=== PATIENT | male | born 1990 | race Caucasian/White ===

== ENCOUNTER 2018-06-05 01:51 | Emergency (ER) | payer BC ==
[2018-06-05 02:02] VITALS: BP 130/73; PULSE 66; RESP 18; TEMP 98
--- NOTE | 2018-06-05 02:32 | ED ---
General Adult HPI - General Chief complaint: Chest Pain Stated complaint: L arm pain Source: patient Mode of arrival: ambulatory Limitations: no limitations - History of Present Illness Initial comments: Dictation was produced using [employer] dictation software. please excuse any grammatical, word or spelling errors. Chief Complaint: 28-year-old male with no significant past mental history presented with brief episode of chest pain with paresthesias to the left hand. History of Present Illness: Works at [employer]. Today he just said several months of caffeine prior to working today. He does work overnights. Patient states that while he was at work he experienced a 2 second episode of severe sharp chest pain. That resolved on its own. Really after he started to feel some tingling in his left hand. Patient was concerned that something was wrong he called his and his brought him to the emergency department for evaluation. Patient complains of some tingling to his left hand over not numbness. She has no seen. Medical history. No family history of cardiac disease or sudden before the age of 45. The ROS documented in this emergency department record has been reviewed and confirmed by me. Those systems with pertinent positive or negative responses have been documented in the HPI. All other systems are other negative and/or noncontributory. - Related Data Allergies Allergy/AdvReac Type Severity Reaction Status Date / Time No Known Allergies Allergy Verified 06/05/18 02:02 Review of Systems ROS Statement: Those systems with pertinent positive or pertinent negative responses have been documented in the HPI. ROS Other: All systems not noted in ROS Statement are negative. Past Medical History Past Medical History: No Reported History History of Any Multi-Drug Resistant Organisms: None Reported Past Surgical History: Tonsillectomy Past Psychological History: No Psychological Hx Reported Smoking Status: Never smoker Past Alcohol Use History: Rare Past Drug Use History: None Reported General Exam - General Exam Comments Initial Comments: PHYSICAL EXAM: General Impression: Alert and oriented x3, not in acute distress HEENT: Normocephalic atraumatic, extra-ocular movements intact, pupils equal and reactive to light bilaterally, mucous membranes moist. Cardiovascular: Heart regular rate and rhythm, S1&S2 audible, no murmurs, rubs or gallops Chest: Lungs clear to auscultation bilaterally, no rhonchi, no wheeze, no rales Abdomen: Bowel sounds present, abdomen soft, non-tender, non-distended, no organomegaly Musculoskeletal: Pulses present and equal in all extremities, no peripheral edema Motor: Power 5/5 bilaterally, no focal deficits noted Neurological: CN II-XII grossly intact, no focal motor or sensory deficits noted Skin: Intact with no visualized rashes Psych: Normal affect and mood Limitations: no limitations Course Vital Signs 06/05/18 01:57 Temperature 98.0 F Pulse Rate 66 Respiratory 18 Rate Blood Pressure 130/73 O2 Sat by Pulse 100 Oximetry Medical Decision Making - Medical Decision Making ED course: 28-year-old male presents with atypical chest pain. No risk factors. Vital signs upon arrival are within acceptable limits. EKGs benign. No click suspicion for acute coronary syndrome or any life-threatening cardiopulmonary process. EKGs benign. Patient is hematologic was stable Decision was made with patient and patient's family member to withhold any further testing at this time given the patient's presentation is overtly atypical. He is told to refrain from caffeine use. Last follow-up with primary care physician upon discharge. Everyone is in agreement to plan and disposition. EKG Interpretation: A 12 lead EKG was obtained. It was interpreted by myself and attending physician. There is a P wave before every QRS complex. Rate is 63. Rhythm is normal sinus rhythm, AK interval 146, QS 96, QTC 382. QT is not prolonged. No ST segment depression or elevation. Overall, this EKG is unremarkable Disposition Clinical Impression: Chest pain Disposition: HOME SELF-CARE Condition: Good Instructions: Chest Pain (ED) Is patient prescribed a controlled substance at d/c from ED?: No Referrals: None,Stated [Primary Care Provider] - 1-2 days Karen Yoo MD [REFERRING] - 1-2 days Time of Disposition: 02:32
== END 2018-06-05 02:43 | disposition home or self-care (01) ==
LOC: EC 01:51
DX: R07.89 Other chest pain (principal); M79.602 Pain in left arm; R20.2 Paresthesia of skin
CPT/HCPCS: 93005; 99284

== ENCOUNTER → 2020-06-09 | Outpatient (CLI) | payer BC ==
--- NOTE | 2020-06-09 11:50 | US ---
EXAMINATION TYPE: US kidneys/renal and bladder DATE OF EXAM: 06/09/2020 COMPARISON: NONE CLINICAL HISTORY: 30-year-old male R10.9 ABD PAIN. Left side pain. TECHNIQUE: Multiple sonographic images of the kidneys and bladder are obtained. FINDINGS: EXAM MEASUREMENTS: Right Kidney: 11.8 x 5.0 x 5.8 cm Left Kidney: 12.6 x 5.2 x 5.7 cm Right Kidney: No hydronephrosis. Left Kidney: Mild pelviectasis. No calyceal dilatation seen. Bladder: Underdistention limits its evaluation. Bilateral Jets not seen IMPRESSION: Mild pelviectasis on the left may be transient. No calyceal dilatation at this time to suggest bartolo hydronephrosis. Short interval follow-up can be considered.
== END | disposition home or self-care (01) ==
LOC: RADUSWWP 11:13
PROVIDERS: ATTEND Family Medicine
DX: N28.89 Other specified disorders of kidney and ureter (principal)
CPT/HCPCS: 76770